=== PATIENT | male | born 1945 | race African-American/Black ===

== ENCOUNTER 2021-05-04 13:59 | Emergency (ER) | payer OTHER ==
[~2021-05-04] VITALS: Ht 177.8 cm; Wt 69.9 kg
[2021-05-04] MEDS ORDERED: LISINOPRIL5 MG PO (14:10)
[2021-05-04] MEDS ORDERED: METOPROLOL SUCC25 MG PO (14:11)
[2021-05-04] MEDS ORDERED: ATORVASTATIN CA10 MG PO (14:11)
== END 2021-05-04 16:58 | disposition home or self-care (01) ==
LOC: ER 13:59
DX: B86 Scabies (principal); I10 Essential (primary) hypertension